=== PATIENT | female | born 1955 | race Caucasian/White ===

== ENCOUNTER 2016-11-11 18:24 | Inpatient (IN) | payer MEDICAID ==
[~2016-11-11] VITALS: Ht 162.6 cm; Wt 67.3 kg
[~2016-11-11 18:24] MED LIST: FARXIGA10 MG PO
--- NOTE | 2016-11-11 18:43 | NUR ---
PT TO ROOM T1 FOR EVAL.
--- NOTE | 2016-11-11 18:43 | NUR ---
EKG DONE IN TRIAGE BY EMT STEPHANIE.
--- NOTE | 2016-11-11 18:45 | NUR ---
PT IS A 61 YEAR OLD FEMALE PRESENTS TO ED WITH C/O MID CHEST PRESSURE AND DIAPHORETIC, N/V X1 EPISODE TODAY. PT REPORTS SHE WAS WATERING HER PLANTS AND STARTED GETTING SHAKY, AND DIAPHORETIC, AND STARTRED GETTING MID CHEST PRESSURE X2 HRS. PT BREAHTING IS EVEN AND UNLABOREDE, NO S/S OF RESPRAITORY DISTRESS. LUNG SOUBDNS ARE CLEAR BILATERALLY. PT SPEECH IS CLEAR AND APPROPRIATE. PT A/O X4. MSE EPRFORMED BY DR. COFFEY.
--- NOTE | 2016-11-11 18:56 | NUR ---
PUSHED ADENOSINE 12MG INTO RIGHT AC, DR. COFFEY AT BEDSIDE.
--- NOTE | 2016-11-11 19:00 | NUR ---
PT CONVERTED TO SINUS TACH AT 110. EKY IN PROGRESS.
--- NOTE | 2016-11-11 19:02 | NUR ---
PT VOMITED ONCE. PT REPORTS FEELS BETTER AND DENIES NAUSEA.
--- NOTE | 2016-11-11 19:11 | NUR ---
X-RAY IS AT BEDSIDE.
[2016-11-11 19:23] LABS: BASOPHIL % 0.3 % (0-2); PLATELET COUNT 268 x10^3mcL (130-400)
[2016-11-11 19:28] LABS: RED CELL DISTRIBUTION WIDTH 14.8 % (11.5-14.5)
[2016-11-11] MEDS ORDERED: MEL10 PO (19:30)
[2016-11-11] MEDS ORDERED: LANTUS SOLOS100 U/M1 (19:31)
[2016-11-11] MEDS ORDERED: LISINOPRIL2.5 MG PO (19:31)
[2016-11-11] MEDS ORDERED: GLUCOPHAGE XR500 MG PO (19:31)
--- NOTE | 2016-11-11 19:38 | NUR ---
PT RESTING, REPORTS NOT HAVING ANY PAIN AT THIS TIME. SON IS AT BEDSIDE. PT IS AAOX4 IN NO ACUTE DISTRESS.
[2016-11-11 19:39] LABS: ALBUMIN 3.4 g/dL (3.4-5.0); BILIRUBIN TOTAL 0.3 mg/dL (0.20-1.00); CALCIUM 8.8 mg/dL (8.5-10.1); CARBON DIOXIDE 26.8 mmol/L (21-32); CREATININE SERUM 1.3 mg/dL (0.6-1.0); MAGNESIUM 1.5 mg/dL (1.8-2.4); POTASSIUM SERUM 5.1 mmol/L (3.5-5.1); T4(THYROXINE) 8.2 ug/dL (4.7-13.3); TOTAL PROTEIN, SERUM 7.1 g/dL (6.4-8.2)
[2016-11-11 20:09] LABS: AMPHETAMINE QUAL UR NONE DETECTED (NEG <=1000)
[2016-11-11 20:57] LABS: microscopic required? NO
--- NOTE | 2016-11-11 21:00 | NUR ---
PT RESTING, IN NO ACUTE DISTRESS, WITH FAMILY AT BEDSIDE.
[2016-11-11 21:02] LABS: UA SPECIFIC GRAVITY 1.015 (1.005-1.035); urine erythrocyte NEGATIVE (NEGATIVE)
--- NOTE | 2016-11-11 21:29 | NUR ---
GAVE REPORT TO JUAREZ MEHTA, TO ASSUME CARE POST TRANSFER
[2016-11-11 21:35] LABS: T3 TOTAL 0.85 ng/mL
--- NOTE | 2016-11-11 21:36 | NUR ---
REC'D PT FROM ER VIA [facility]. PT IS AAOX4. TELE #43 NSR. DENIES CHEST PAIN. LUNG SOUNDS CLEAR. NO SOB NOTED. IV NOTED TO RAC. INTACT AND PATENT. ORIENTED PT TO CALL LIGHT. BED IN LOWEST POSITION. WILL ENDORSE TO PRIMARY RN.
[2016-11-11 21:37] LABS: FREE T4 1.22 ng/dL (0.76-1.46); FREE THYROXINE INDEX 3.3 ug/dL (1.4-4.5); T4(THYROXINE) 8.7 ug/dL (4.7-13.3)
[2016-11-11 21:58] VITALS: BP 106/67
--- NOTE | 2016-11-11 22:03 | NUR ---
PT QUIET AND RESTING. NO C/O CHEST PAIN AND PRESSURE THUS FAR. IV INTACT AND INFUSING WITH NS AT 100 ML/HR ON THE RAC. WILL CONTINUE TO MONITOR.
[2016-11-11 22:36] VITALS: BP 112/76
[2016-11-12 04:49] VITALS: BP 145/83
--- NOTE | 2016-11-12 05:09 | NUR ---
PT RESTING WITH EYES CLOSED. EASILY AROUSABLE WITH VERBAL STIMULI. NO C/O CHEST PAIN THUS FAR. IV INTACT AND INFUSING ORDERED. WILL ENDORSE TO THE AM NURSE ACCORDINGLY.
[2016-11-12 05:31] VITALS: BP 126/69
--- NOTE | 2016-11-12 07:55 | NUR ---
AWAKE,ALERT AND ORIENTED.DENIES ANY PAIN AT THIS TIME.AMBULATED IN THE BATHROOM AND VOIDING WELL.CONT. IV FLUIDS ORDERED ,CALL LIGHT W/ IN REACH.WILL CONT. PLAN OF CARE.
--- NOTE | 2016-11-12 08:30 | NUR ---
DR. DANIELS NOTIFIED REGARDING TROP 0.941 RESULTS AND MADE AWARE.
--- NOTE | 2016-11-12 08:45 | NUR ---
DR ALVAREZ WAS HERE AND MADE ROUNDS W/ OTHER MEDICAL STAFF AND UPDATED PT. PLAN OF CARE.
[2016-11-12 09:26] VITALS: BP 142/85
[2016-11-12 11:45] VITALS: Ht 162.6 cm; Wt 67.3 kg
--- NOTE | 2016-11-12 12:00 | NUR ---
PT. STARTED ON HEPARIN DRIPS ORDERED AND FOLLOWED W/ HEPARIN PROTOCOL. PT. DENIES CHEST PAIN,AMBULATED IN THE BATHROOM AND VOIDING WELL.NO ACUTE DISTRESS NOTED.NEXT PTT ORDERED 1900 PM.
[2016-11-12 13:06] VITALS: BP 138/82
--- NOTE | 2016-11-12 13:20 | NUR ---
RESULTS OF TROP- 0.699 DR. DANIELS NOTIFIED AND MADE AWARE.
[2016-11-12 14:16] LABS: BASOPHIL % 0.3 % (0-2); PLATELET COUNT 203 x10^3mcL (130-400)
[2016-11-12 14:23] LABS: RED CELL DISTRIBUTION WIDTH 15.1 % (11.5-14.5)
[2016-11-12 17:08] VITALS: BP 151/84
--- NOTE | 2016-11-12 19:56 | NUR ---
RECEIVED PATIENT AWAKE, ALERT, ORIENTED X4 SITTING AT THE SIDE OF THE BED. FAMILY MEMBER AT THE BEDSIDE. ONGOING 0.9% NS AT 120 CC/HR INFUSING WELL AT THE RIGHT ANTECUBITAL AREA. HEPARIN DRIP AT 800 UNITS/HR INFUSING WELL AT THE RIGHT ANTECUBITAL AREA. AWAITING FOR LATEST PTT RESULT. RESPIRATION EVEN AND UNLABORED, ON ROOM AIR. VOIDING FREELY IN THE BATHROOM. SKIN DRY AND INTACT. AMBULATORY. INDEPENDENT. DENIES PAIN AT THIS TIME. WILL CONTINUE TO MONITOR.
--- NOTE | 2016-11-12 20:30 | NUR ---
HEPARIN DRIP DISCONTINUED ORDERED.
[2016-11-12 22:14] VITALS: BP 139/74
--- NOTE | 2016-11-13 03:35 | NUR ---
PATIENT COMPLAINED OF CHEST PAIN, PS 9/10, APPEARS SOB AND ANXIOUS AFTER GOING TO THE BATHROOM. MORPHINE SULFATE 2 MG IVP GIVEN ORDERED. WILL REASSESS PATIENT.
[2016-11-13 06:21] VITALS: BP 133/69
[2016-11-13 06:54] LABS: BASOPHIL % 0.2 % (0-2); PLATELET COUNT 199 x10^3mcL (130-400); RED CELL DISTRIBUTION WIDTH 14.3 % (11.5-14.5)
[2016-11-13 07:04] LABS: CALCIUM 8.2 mg/dL (8.5-10.1); CARBON DIOXIDE 22.6 mmol/L (21-32); MAGNESIUM 1.4 mg/dL (1.8-2.4); POTASSIUM SERUM 4.6 mmol/L (3.5-5.1)
--- NOTE | 2016-11-13 08:00 | NUR ---
AWAKE,ALERT AND ORIENTED. DENIES ANY PAIN AT THIS TIME,CALL LIGHT W/ IN REACH. ABLE TO AMBULATE IN THE BATHROOM AND VOIDING WELL. CONT. IV FLUIDS ORDERED. CALL LIGHT W/ IN REACH. NO ACUTE DISTRESS NOTED.WILL CONT. PLAN OF CARE.
--- NOTE | 2016-11-13 09:00 | NUR ---
PT. C/O BACK PAINW/ SCALE OF 5/10 MEDICATED W/ NORCO ORDERED FOR PAIN.MADE PT. COMFORTABLE IN BED. CALL LIGHT W/ IN REACH.
--- NOTE | 2016-11-13 09:05 | NUR ---
DR. FLETCHER WAS HERE W/ OTHER MEDICAL STAFF MADE ROUNDS AND UPDATED PT. PLAN OF CARE.
[2016-11-13 09:12] VITALS: BP 150/91
[2016-11-13 12:36] VITALS: BP 146/94
--- NOTE | 2016-11-13 13:00 | NUR ---
DR. NORIEGA HERE AND SEEN THE PT. W/ NEW ORDERS MADE OK PT.TO GO HOME TODAY PT. MADE AWARE AND AWAITING FOR RIDE.
[2016-11-13] MEDS ORDERED: LIPI10 PO (13:21)
[2016-11-13] MEDS ORDERED: TOP50 PO (13:22)
[2016-11-13] MEDS ORDERED: METFORMIN HCL1000 MG PO (13:24)
[2016-11-13] MEDS ORDERED: ZES5 PO (13:33)
[2016-11-13 13:36] VITALS: BP 146/94
--- NOTE | 2016-11-13 14:30 | NUR ---
DISCHARGED INSTRUCTIONS AND PRESCRIPTION GIVEN AND DISCUSSED TO PT./JAXSON AND VERBALIZED UNDERSTANDING OF INSTRUCTIONS GIVEN NO ACUTE DISTRESS NOTED.PT. WENT HOME WITH STABLE CONDITION PER W/C ACC. W/ HER . ESCORTED BY ANT DOWN IN THE LOBBY.
== END 2016-11-13 14:26 | disposition home or self-care (01) | DRG 203 ==
LOC: ED 18:24 → DU 20:36
PROVIDERS: Emergency Medicine; ADMIT Family Medicine
DX: R07.9 Chest pain, unspecified (principal); N17.0 Acute kidney failure with tubular necrosis; K21.9 Gastro-esophageal reflux disease without esophagitis; M94.0 Chondrocostal junction syndrome [Tietze]; I47.1 Supraventricular tachycardia; E11.65 Type 2 diabetes mellitus with hyperglycemia; E87.1 Hypo-osmolality and hyponatremia; E83.42 Hypomagnesemia; I10 Essential (primary) hypertension; E78.5 Hyperlipidemia, unspecified; E03.9 Hypothyroidism, unspecified; F32.9 Major depressive disorder, single episode, unspecified; Z79.4 Long term (current) use of insulin; Z79.84 Long term (current) use of oral hypoglycemic drugs; Z68.25 Body mass index [BMI] 25.0-25.9, adult
CPT/HCPCS: 36600; 83880; 84439; J0153; J1644; J1815; J2060; J2270; J3475; J7030; Q0092